=== PATIENT | male | born 1990 | race Caucasian/White ===

== ENCOUNTER 2022-02-15 18:01 | Emergency (ER) | payer BC, SELFPAY ==
--- NOTE | ~2022-02-15 | XR_ITS ---
EXAM: XR ankle RT min 3V DATE: 02/15/2022 18:38 HISTORY: injury, heard pop . COMPARISON: None available. FINDINGS: Normal mineralization. 3 small ossific bodies project over the medial joint space, without a clear donor site. No lytic or blastic lesion. Achilles enthesopathy. No erosion or periosteal cobos ge. Lateral soft tissue swelling. IMPRESSION: Ossific fragments in the medial joint space may reflect acute versus chronic avulsion fra cture fragments, correlate with point tenderness. Reviewed, dictated and finalized at location K. IMPRESSION: Ossific fragments in the medial joint space may reflect acute versu s chronic avulsion fracture fragments, correlate with point tenderness.
[2022-02-15 18:08] VITALS: BP 118/74; PULSE 78; RESP 18; TEMP 36.4; O2SAT 98
--- NOTE | 2022-02-15 18:58 | ED.LOWEXIN ---
HPI - Extremity Injury (Lower) General Chief Complaint: Extremity Injury, Lower Stated Complaint: right ankle injury Time Seen by Provider: 02/15/22 18:11 Source: RN notes reviewed History of Present Illness HPI Narrative: Patient presents emerged department from home for right ankle pain. Patient states that just prior to arrival by her he was playing softball when he was running around [place] and his heel caught the bag causing him to invert his right ankle he states since that time he had pain and swelling over the right lateral ankle he denies any other trauma or injury states he has not taken anything for the pain denies any numbness or tingling of the extremity Related Data Allergies Allergy/AdvReac Type Severity Reaction Status Date / Time No Known Allergies Allergy Verified 02/15/22 18:14 Review of Systems Review of Systems: Gen.: Denies fevers or chills Musculoskeletal: See HPI Neuro: Denies numbness, tingling, weakness Skin: Denies rash Endo: Denies DM PMFSH Past Medical History Medical History (Updated 02/15/22 @ 19:02 by Alex Joshi DO) Patient denies significant medical history Social History Social History (Updated 02/15/22 @ 19:00 by Alex Joshi DO) Smoking status: Never smoker Exam Narrative: APPEARANCE: No acute distress, nontoxic, resting in bed Eyes: EOMI HEENT: Normocephalic, atraumatic, RESPIRATORY: No respiratory distress MUSCULOSKELETAl: Tender to palpation of the right lateral ankle with swelling present no ecchymosis no tenderness of the anterior or medial ankle no tenderness of the base of the fifth metatarsal or the proximal fibula, dorsalis pedis pulse 2+ neurovascular intact NEURO: Awake and alert. Following commands, speech normal, no focal deficits SKIN:: Warm, dry. Normal Color no rash or lesions Course Course Emergency Course: Discussed with patient results of workup and diagnosis. Discussed need for follow-up with primary care, proper use of medication, and reasons to return to the emergency department. Patient understands and agrees to current treatment plan Vital Signs Vital signs: Vital Signs Temperature 95.7 F L 02/15/22 18:08 Pulse Rate 78 02/15/22 18:08 Respiratory Rate 18 02/15/22 18:08 Blood Pressure 118/74 02/15/22 18:08 Pulse Oximetry 98 02/15/22 18:08 Oxygen Delivery Room Air 02/15/22 18:08 Temperature 95.7 F L 02/15/22 18:08 Pulse Rate 78 02/15/22 18:08 Respiratory Rate 18 02/15/22 18:08 Blood Pressure 118/74 02/15/22 18:08 Pulse Oximetry 98 02/15/22 18:08 Oxygen Delivery Room Air 02/15/22 18:08 MDM - Extremity Injury (Lower) MDM Narrative Medical decision making narrative: Patient inverted his ankle pain over the lateral ankle with swelling present did review the patient's x-ray there is no tenderness over the medial ankle there is no swelling and I feel that this is likely from previous avulsion injury at this time with patient placed in Nhan wrap and ankle sprain precautions Imaging Data Radiologist's impression: ITS Impressions Ankle X-Ray 02/15/22 18:46 IMPRESSION: Ossific fragments in the medial joint space may reflect acute versus chronic avulsion fracture fragments, correlate with point tenderness. Discharge Plan Discharge Clinical Impression: Right ankle sprain Patient Disposition: Home, Self-Care Condition: Stable Instructions: Antibiotic Form, Ankle Sprain (ED) Additional Instructions: Return for increasing pain numbness or tingling in extremities or any other symptoms of concern Prescriptions: New ibuprofen 600 mg tablet 600 mg PO TID PRN (Reason: pain) Qty: 14 0RF Follow-up/Referrals: PHYSICIAN,BAKERY CLERK [Primary Care Provider] - Ramiro Lyles MD [Physician] - (Follow-up in 2 to 3 days for further orthopedic treatment and evaluation) Time of Disposition: 19:01
[2022-02-15] MEDS: IBUPROFEN 600 MG TABLET PO (19:04)
== END 2022-02-15 19:16 | disposition home or self-care (01) ==
PROVIDERS: Emergency Provider Emergency Medicine
DX: S93.401A Sprain of unspecified ligament of right ankle, initial encounter (principal); X50.9XXA Other and unspecified overexertion or strenuous movements or postures, initial encounter; Y93.64 Activity, baseball
CPT/HCPCS: 73610; 99283; A9270